=== PATIENT | female | born 1985 | race Caucasian/White ===

== ENCOUNTER 2017-11-29 10:15 | Inpatient (IN) | payer OTHER ==
[2017-11-29 10:54] VITALS: BMI 35.7
[2017-11-29] MEDS ORDERED: CITRIC ACID/SODIUM CITRATE 30 ML UNIT-DOSE CUP PO ONE (11:45)
[2017-11-29] MEDS ORDERED: ELECTROLYTE-148 SOLN 1,000 ML IV ONE (11:45)
[2017-11-29] MEDS ORDERED: TUBERCULIN PPD 5 TU/0.1ML SYRINGE (IN PATIENT USE ONLY) ID ONE (12:00)
--- NOTE | 2017-11-29 12:36 | HP ---
Past Medical History - Admission History Source: Patient, Medical Record Limitations to Obtaining History: No Limitations - Past Medical History Cardiovascular: Yes: Murmur (h/o murmur, stable, no meds). No: AFIB, HTN Pulmonary: No: Asthma Gastrointestinal: No: Constipation, GERD Hepatobiliary: No: Hepatitis B, Hepatitis C Reproductive: No: Ectopic , Endometriosis, Fibroids ...: 2 ...Para: 1 ...Term: 1 ...LMP: 02/28/17 ... Weeks Gestation by Dates: 39.1 ...EDC by Dates: 12/05/17 ...EDC by Sono: 12/01/17 Psych: No: Bipolar, Depression, Panic Musculoskeletal: No: Chronic low back pain - Past Surgical History Past Surgical History: Yes: Hx Myomectomy: No Hx Transabdominal Cerclage: No - Smoking History Smoking history: Never smoked Have you smoked in the past 12 months: No - Alcohol/Substance Use Hx Alcohol Use: No History of Substance Use: reports: None - Social History Usual Living Arrangement: Yes: With Spouse ADL: Independent History of Recent Travel: No Home Medications - Allergies Allergies/Adverse Reactions: Allergies Allergy/AdvReac Type Severity Reaction Status Date / Time codeine Allergy Severe Hives Verified 10/17/17 23:30 Penicillins Allergy Severe Difficulty Verified 10/17/17 23:30 Breathing Sulfa (Sulfonamide Allergy Severe Hives Verified 11/29/17 10:45 Antibiotics) - Home Medications Home Medications: Ambulatory Orders Vitamins (Sjr) - 1 tab PO DAILY 10/02/17 Review of Systems - Review of Systems Constitutional: reports: No Symptoms Eyes: reports: No Symptoms HENT: reports: No Symptoms Neck: reports: No Symptoms Cardiovascular: reports: No Symptoms Respiratory: reports: No Symptoms Gastrointestinal: reports: No Symptoms Genitourinary: reports: No Symptoms Breasts: reports: No Symptoms Reported Musculoskeletal: reports: No Symptoms Integumentary: reports: No Symptoms Neurological: reports: No Symptoms Endocrine: reports: No Symptoms Hematology/Lymphatic: reports: No Symptoms Psychiatric: reports: No Symptoms Physical Exam - Maternity Vital Signs: Vital Signs Temperature 98.6 F 11/29/17 10:15 Pulse Rate 95 H 11/29/17 10:15 Respiratory Rate 18 11/29/17 10:15 Blood Pressure 129/84 11/29/17 10:15 O2 Sat by Pulse Oximetry (%) Constitutional: Yes: Well Nourished Eyes: Yes: WNL Neck: Yes: WNL Lungs: Clear to auscultation - Abdominal Exam/OB Fundal Height: 40 Number of Fetuses: Single Presentation: Vertex Category: I Accelerations: Uniform Decelerations: None - Vaginal Exam/OB Vaginal Bleediing: No Amniotic Membrane Status: Intact - Physical Exam Extremities: Yes: WNL Psychiatric: Yes: Alert, Oriented Hemorrhage Risk Assessment - Risk Factors Medium Risk Factors: Yes: Prior , uterine surgery,or multiple laparotomies Risk Score: 1 Risk Level: Medium Risk Problem List - Problems (1) Uterine scar from previous delivery Code(s): O34.219 - MATERNAL CARE FOR UNSP TYPE SCAR FROM PREVIOUS DEL Assessment/Plan 32 y/o with SIUP at 39 weeks for repeat c sectin AFVSS FHTS cat 1 NPO SCDs Schulz nursery/anesthesia/nursing aware for repeat c section
[2017-11-29] MEDS ORDERED: ELECTROLYTE-148 SOLN 1,000 ML IV SCH (12:45)
[2017-11-29] MEDS ORDERED: morphine SULFATE/Preservative Free 0.5 MG/ML (1cc Syringe) EP ONE (12:51)
[2017-11-29] MEDS ORDERED: ONDANSETRON 4 MG/2 ML VIAL IVPUSH PRN (12:51)
[2017-11-29] MEDS ORDERED: ceFAZolin SODIUM 1 GM VIAL ONE (13:13)
[2017-11-29] MEDS ORDERED: BUPIVACAINE 0.75% IN DEXTROSE/PF 2ML AMPULE NR ONE (13:15)
[2017-11-29] MEDS ORDERED: OXYTOCIN 10 UNITS/ML VIAL ONE ×2 (13:51→13:54)
--- NOTE | 2017-11-29 14:36 | OP ---
Operative Note - Note: Operative Date: 11/29/17 Pre-Operative Diagnosis: Previous delivery, declined TOLAC Operation: repeat low transverse delivery Findings: normal b/l tubes/ovaries Post-Operative Diagnosis: Same as Pre-op Surgeon: Daniela Wiley Community Planner: Daniel Sibley Anesthesiologist/RISK TECH: Gaurav Lui Anesthesia: Spinal Specimens Removed: placenta Estimated Blood Loss (mls): 600 Operative Report Dictated: Yes
[2017-11-29] MEDS ORDERED: METHYLERGONOVINE MALEATE 0.2 MG/1 ML AMP IM PRN (15:10)
[2017-11-29] MEDS ORDERED: oxyCODONE HCL 5 MG TABLET PO PRN ×2 (15:10)
[2017-11-29] MEDS ORDERED: ACETAMINOPHEN 1000 MG/100 ML VIAL (NON FORMULARY) IVPB PRN (15:14)
[2017-11-29] MEDS ORDERED: OXYTOCIN 20 UNITS in 0.9% NS 20 UNIT/1,000 ML INFUS.BAG IV SCH (15:15)
[2017-11-29] MEDS ORDERED: OXYTOCIN 20 UNITS in 0.9% NS 20 UNIT/1,000 ML INFUS.BAG IV ONE (15:28)
[2017-11-29] MEDS ORDERED: IBUPROFEN 800 MG/8 ML IJ IVPB ONE (15:32)
[2017-11-29] MEDS: IBUPROFEN 800 MG/8 ML IJ IVPB PRN (15:35)
--- NOTE | 2017-11-29 21:05 | OP ---
DATE OF OPERATION: 11/29/2017 PREOPERATIVE DIAGNOSIS: Prior delivery, single intrauterine at 39 weeks, declined trial of labor after delivery. POSTOPERATIVE DIAGNOSIS: Prior delivery, single intrauterine at 39 weeks, declined trial of labor after delivery. PROCEDURE: Repeat low transverse delivery. SURGEON: Daniela Wiley DO PODIATRY TEACHER: FIONA Mae ANESTHESIA: Spinal by Delano Lui MD. COMPLICATIONS: None. COUNTS: Sponge, needle, and instrument count correct. DISPOSITION: Stable to PACU. BRIEF HISTORY AND PROCEDURE: Patient is a 32-year-old, G2, P1 female who was admitted to labor and delivery on November 29, 2017, for a scheduled repeat delivery. Consents were signed for the procedure. The patient was taken back to the operating room, given spinal anesthesia, and placed in the dorsal supine position. A Schulz catheter was placed under sterile conditions. She was prepped and draped in the usual sterile fashion, and a hard timeout was performed. A Pfannenstiel skin incision was created in the skin and carried to the underlying layer of rectus fascia with the Bovie. The fascia was incised on either side of the midline, and the incision was extended in a superolateral direction sharply. The fascia was tented upward with Cortes clamps and dissected off the underlying layer of rectus muscle sharply. The musculature was elevated and sharply, and the peritoneum was entered and carefully dissected to allow for adequate room for delivery. A bladder blade was then inserted. A bladder flap was created. Then, an incision in the lower uterine segment was completed in a transverse fashion, and the incision was extended in a superolateral direction bluntly. The infant was delivered from the CHIQUITA position with a loose nuchal cord noted. The remainder of the infant delivered with ease. The cord was clamped twice and cut in between. The infant was taken over to the warmer to be assessed by the neonatology staff. The placenta was then delivered with a 3-vessel cord intact and manually extracted. The uterus was exteriorized from the abdomen and inspected and cleared of all amniotic membrane and debris with a dry lap sponge. The hysterotomy was reapproximated using 1 Vicryl suture in a running locked fashion and in a second layer using 0 Biosyn in a running locked fashion. The bladder peritoneum was sutured back to the incision as well. Excellent hemostasis was achieved. Bilateral tubes and ovaries looked to be normal. The uterus was placed back in the abdomen. Bilateral gutters were inspected and cleared of all blood clot and debris. The peritoneum was reapproximated using 2-0 chromic in a running fashion. The musculature was reapproximated in 2 interrupted sutures using 2-0 chromic and 0 Biosyn. The fascia was reapproximated using 1 Vicryl in a running fashion. The subcutaneous tissue was reapproximated using 1 Vicryl in a running fashion, and the skin was reapproximated in subcuticular fashion using 3-0 Vicryl. Steri-Strips were then applied. The patient was recovering in stable condition in the PACU at the time of this dictation. Sponge, needle, and instrument count was reported correct. DANIELA WILEY DO /[id number]
[2017-11-30 07:23] LABS: BASO % 0.4 % (0-2.0); EOS % 1.5 % (0-4.5); HEMATOCRIT 32.4 % (32.4-45.2); HEMOGLOBIN 11.2 GM/dL (10.7-15.3); LYMPH % 12.1 % (8-40); MCH 31.2 pg (25.7-33.7); MCHC 34.7 g/dl (32.0-36.0); MEAN CELL VOLUME 90.1 fl (80-96); MEAN PLT VOLUME 8.6 fl (7.5-11.1); MONO % 8.6 % (3.8-10.2); NEUT % 77.4 % (42.8-82.8); PLATELET COUNT 214 K/MM3 (134-434); RDW 13.3 % (11.6-15.6); WHITE BLOOD COUNT 12.5 K/mm3 (4.0-10.0)
[2017-11-30] MEDS: IBUPROFEN 800 MG/8 ML IJ IVPB PRN ×2 (08:12)
[2017-11-30] MEDS: SIMETHICONE 80 MG TAB.CHEW (FP) PO PRN ×3 (09:14→18:34)
[2017-11-30] MEDS: PRENATAL VITAMINS W/ FOLIC ACID TABLET (FP) PO SCH (09:14)
--- NOTE | 2017-11-30 09:40 | PN ---
Post Progress Note - Subjective Subjective: Pt seen/evaluated and doing well. Pain controlled, tolerating diet, ambulating , voiding, passing flatus. Tolerating regular diet. No compalints. Type of Delivery: Repeat C/S Vital Signs: Vital Signs Temperature 98.4 F 11/30/17 08:43 Pulse Rate 86 11/30/17 08:43 Respiratory Rate 20 11/30/17 08:43 Blood Pressure 121/67 11/30/17 08:43 O2 Sat by Pulse Oximetry (%) 100 11/29/17 15:20 Uterus: Yes: Fundus Firm Incision: Yes: Sutures intact Abdomen/GI: Yes: Abdomen soft, Passing flatus, Tolerating PO. No: Tender Lochia: Yes: Rubra Lochia, amount: Small Extremities: Yes: Calves non-tender Perineum: Yes: Intact Activity: Ambulating - Labs Labs: CBC WBC 12.5 K/mm3 (4.0-10.0) H 11/30/17 06:20 RBC 3.60 M/mm3 (3.60-5.2) 11/30/17 06:20 Hgb 11.2 GM/dL (10.7-15.3) 11/30/17 06:20 Hct 32.4 % (32.4-45.2) 11/30/17 06:20 MCV 90.1 fl (80-96) 11/30/17 06:20 MCH 31.2 pg (25.7-33.7) 11/30/17 06:20 MCHC 34.7 g/dl (32.0-36.0) 11/30/17 06:20 RDW 13.3 % (11.6-15.6) 11/30/17 06:20 Plt Count 214 K/MM3 (134-434) D 11/30/17 06:20 MPV 8.6 fl (7.5-11.1) 11/30/17 06:20 Absolute Neuts (auto) 9.7 # 11/30/17 06:20 Neutrophils % 77.4 % (42.8-82.8) 11/30/17 06:20 Lymphocytes % 12.1 % (8-40) D 11/30/17 06:20 Monocytes % 8.6 % (3.8-10.2) 11/30/17 06:20 Eosinophils % 1.5 % (0-4.5) D 11/30/17 06:20 Basophils % 0.4 % (0-2.0) D 11/30/17 06:20 Nucleated RBC % 0 % (0-0) 11/30/17 06:20 Problem List - Problems (1) Uterine scar from previous delivery Code(s): O34.219 - MATERNAL CARE FOR UNSP TYPE SCAR FROM PREVIOUS DEL Assessment/Plan 32 y/o POD#2 s/p primary delivery AFVSS Hgb stable regular diet PO pain meds routine care
--- NOTE | 2017-11-30 11:05 | PN ---
Progress Note (short form) - Note Progress Note: Anesthesia/pain Pt seen and examined S:Alert and awake comfortable O: Vital Signs Temperature 98.4 F 11/30/17 08:43 Pulse Rate 86 11/30/17 08:43 Respiratory Rate 20 11/30/17 10:00 Blood Pressure 121/67 11/30/17 08:43 O2 Sat by Pulse Oximetry (%) 100 11/29/17 15:20 CBC, BMP 11/30/17 06:20 A/P: Current Active Problems Uterine scar from previous delivery (Acute) s/p c section Doing well post op Continue current care Zack Yang MD
[2017-11-30] MEDS: IBUPROFEN 600 MG TABLET (FP) PO PRN ×2 (14:41→18:33)
[2017-11-30] MEDS: ACETAMINOPHEN 325 MG TABLET (FP) PO PRN ×2 (14:41→18:33)
[2017-11-30] MEDS ORDERED: BISACODYL 10 MG SUPP.RECT RC PRN (15:10)
[2017-11-30] MEDS ORDERED: DIPHTH,PERTUSS(ACELL),TET 0.5 ML DISP.SYRIN IM ONE (18:00)
[2017-12-01] MEDS: IBUPROFEN 600 MG TABLET (FP) PO PRN ×3 (06:30→18:56)
[2017-12-01] MEDS: SIMETHICONE 80 MG TAB.CHEW (FP) PO PRN ×3 (06:30→18:56)
[2017-12-01] MEDS: ACETAMINOPHEN 325 MG TABLET (FP) PO PRN ×3 (06:31→18:58)
[2017-12-01] MEDS: PRENATAL VITAMINS W/ FOLIC ACID TABLET (FP) PO SCH (09:06)
--- NOTE | 2017-12-01 13:29 | PN ---
Post Progress Note - Subjective Subjective: Pt seen/evaluated no complaints. Pain controlled, tolerating diet, ambulating, voiding, passing flatus, no complaints. Type of Delivery: Repeat C/S Vital Signs: Vital Signs Temperature 97.4 F L 12/01/17 08:00 Pulse Rate 80 12/01/17 08:00 Respiratory Rate 18 12/01/17 08:00 Blood Pressure 113/67 12/01/17 08:00 O2 Sat by Pulse Oximetry (%) 100 11/29/17 15:20 Breast Exam: Yes: Soft Uterus: Yes: Fundus Firm Incision: Yes: Sutures intact Abdomen/GI: Yes: Abdomen soft, Passing flatus, Tolerating PO. No: Abdominal Distention, Tender Lochia: Yes: Rubra Lochia, amount: Small Extremities: Yes: Calves non-tender, Edema (+1 nonpitting edema in LE b/l ) Perineum: Yes: Intact Activity: Ambulating - Labs Labs: CBC WBC 12.5 K/mm3 (4.0-10.0) H 11/30/17 06:20 RBC 3.60 M/mm3 (3.60-5.2) 11/30/17 06:20 Hgb 11.2 GM/dL (10.7-15.3) 11/30/17 06:20 Hct 32.4 % (32.4-45.2) 11/30/17 06:20 MCV 90.1 fl (80-96) 11/30/17 06:20 MCH 31.2 pg (25.7-33.7) 11/30/17 06:20 MCHC 34.7 g/dl (32.0-36.0) 11/30/17 06:20 RDW 13.3 % (11.6-15.6) 11/30/17 06:20 Plt Count 214 K/MM3 (134-434) D 11/30/17 06:20 MPV 8.6 fl (7.5-11.1) 11/30/17 06:20 Absolute Neuts (auto) 9.7 # 11/30/17 06:20 Neutrophils % 77.4 % (42.8-82.8) 11/30/17 06:20 Lymphocytes % 12.1 % (8-40) D 11/30/17 06:20 Monocytes % 8.6 % (3.8-10.2) 11/30/17 06:20 Eosinophils % 1.5 % (0-4.5) D 11/30/17 06:20 Basophils % 0.4 % (0-2.0) D 11/30/17 06:20 Nucleated RBC % 0 % (0-0) 11/30/17 06:20 Problem List - Problems (1) Uterine scar from previous delivery Code(s): O34.219 - MATERNAL CARE FOR UNSP TYPE SCAR FROM PREVIOUS DEL Assessment/Plan 32 y/o POD#3 s/p primary delivery AFVSS Hgb 11.2, pt stable regular diet PO pain meds routine care for discharge home in a.m. POD #3
--- NOTE | 2017-12-01 22:58 | DS ---
Physical Exam-GAS APPLIANCE SERVICER Vital Signs: Vital Signs Temperature 97.4 F L 12/01/17 08:00 Pulse Rate 80 12/01/17 08:00 Respiratory Rate 18 12/01/17 08:00 Blood Pressure 113/67 12/01/17 08:00 O2 Sat by Pulse Oximetry (%) 100 11/29/17 15:20 Constitutional: Yes: Well Nourished, No Distress, Calm Eyes: Yes: WNL HENT: Yes: WNL Neck: Yes: WNL Respiratory: Yes: WNL Gastrointestinal: Yes: Soft. No: Tenderness Musculoskeletal: Yes: WNL Extremities: Yes: WNL Wound/Incision: Yes: Clean/Dry, Well Approximated, Sutures Intact Neurological: Yes: Alert, Oriented Psychiatric: Yes: Alert, Oriented Labs: CBC, BMP 11/30/17 06:20 Delivery - Delivery Section: Repeat, Low Flap Transverse Type of Anesthesia: Spinal Episiotomy/Laceration: None EBL (cc): 600 Delivery, Single - Stages of Labor Date of Delivery: 11/29/17 Time of Delivery: 13:50 Time Placenta Delivered: 13:51 Placenta: Yes: Manual Removal - Condition of Medical Laboratory Assistant/Harness Maker Present: Yes Name: Contreras Hurst Gender: Female Weight: 7 lb 2 oz Position: Right, OA Total Hours ROM (Hrs/Mins): 2mins - 1 Minute Total Score: 9 5 Minutes Total Score: 9 - Feeding Plan Initial Plan: Exclusive throughout hospitalization Discharge Summary Reason For Visit: Current Active Problems Uterine scar from previous delivery (Acute) Procedures: Principal: Repeat delivery. Hospital Course: Pt admitted on 11/29/17 for scheduled repeat c section. Pt underwent uncomplicated procedure on that date. She had an uncomplicated post course and was discharged home on post op day 3. Condition: Good - Instructions Diet, Activity, Other Instructions: Physical activity Resume your normal everyday activity as tolerated no heavy lifting or strenuous exercise until seen by your surgeon. You may walk unlimited amounts and climb stairs. You may resume driving the car when you feel safe and comfortable behind the wheel. No sexual activity as instructed for 6 weeks. Wound care . If there are tapes on the skin leave them in place. They will peel off in the next 7 to 10 days. Do Not Peel them off. You may shower the day after surgery. If there are tapes present on the skin, you may shower over them. Diet There are no dietary restrictions. Eat healthy, high-fiber foods. Drink 6 to 8 glasses of liquid each day. This will assist in keeping your bowels regular. Pain management You may take Tylenol or Ibuprofen (for example, Motrin, Advil etc.) as needed fo pain. Call MD for any of the following: Severe pain not relieved by medication Fever of 101 or higher Excessive bleeding or drainage on dressing Inability to urinate Referrals: Daniela Wiley DO [Staff Physician] - 1 Week (for incision check) Disposition: HOME - Home Medications Comprehensive Discharge Medication List: Ambulatory Orders Vitamins (Sjr) - 1 tab PO DAILY 10/02/17 Ibuprofen [Motrin -] 600 mg PO QID PRN #28 tablet 12/01/17
[2017-12-02] MEDS: SIMETHICONE 80 MG TAB.CHEW (FP) PO PRN (03:26)
[2017-12-02] MEDS: IBUPROFEN 600 MG TABLET (FP) PO PRN (03:26)
[2017-12-02] MEDS: ACETAMINOPHEN 325 MG TABLET (FP) PO PRN (03:28)
[2017-12-02 07:54] LABS: BASO % 0.4 % (0-2.0); EOS % 2.9 % (0-4.5); HEMATOCRIT 33.2 % (32.4-45.2); HEMOGLOBIN 11.5 GM/dL (10.7-15.3); LYMPH % 19.7 % (8-40); MCH 31.4 pg (25.7-33.7); MCHC 34.7 g/dl (32.0-36.0); MEAN CELL VOLUME 90.6 fl (80-96); MEAN PLT VOLUME 8.4 fl (7.5-11.1); MONO % 8.3 % (3.8-10.2); NEUT % 68.7 % (42.8-82.8); PLATELET COUNT 247 K/MM3 (134-434); RBC 3.66 M/mm3 (3.60-5.2); RDW 13.5 % (11.6-15.6); WHITE BLOOD COUNT 8.7 K/mm3 (4.0-10.0)
[2017-12-02 08:26] VITALS: BP 132/78; PULSE 88; TEMP 97.7
[2017-12-02] MEDS: PRENATAL VITAMINS W/ FOLIC ACID TABLET (FP) PO SCH (09:49)
--- NOTE | 2017-12-03 17:35 | PATH ---
Surgical Pathology Report Patient Name: LEATHA SANTOS [facility]. Rec. 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 Specimen(s) Received PLACENTA Clinical History , 39.5 weeks gestation, previous Final Diagnosis PLACENTA, SECTION: 440 g THIRD TRIMESTER PLACENTA WITH TRIVASCULAR UMBILICAL CORD, INTRAPARENCHYMAL HEMORRHAGE (~5-10% OF PLACENTAL SURFACE), AND UNREMARKABLE PLACENTAL MEMBRANES. Electronically Signed Ingrid Price M.D. Gross Description The specimen is received fresh labeled placenta and is a 440 gram, 19.0 x 13.0 x 2.8 cm. placenta with attached membranes and umbilical cord. The attached membranes are ricardo, translucent with focal opacities and insert marginally. The umbilical cord measures 28 cm. in length and averages 1.0 cm. in diameter. The cord inserts eccentrically, 2.5 cm. to the nearest margin. No true knots or strictures are identified. Cut surface of the umbilical cord reveals 3 vessels. The surface is isbell-blue with minimal fibrin deposition and appropriate caliber vessels. The maternal surface is red-brown with focal defects. Sectioning reveals a 1.4 cm greatest dimension hemorrhagic lesion. The remaining placental parenchyma is red-brown and spongy. Trauma Program Manager sections are submitted in 4 cassettes as follows: 1-membrane rolls and umbilical cord; 2-lesion; 3-4-full thickness sections of placenta. /12/02/2017 [facility]12/02/2017
== END 2017-12-02 13:30 | disposition home or self-care (01) | DRG 766 ==
LOC: JLDR 10:15 → J3W 16:30
PROVIDERS: ADMIT Obstetrics & Gynecology; ATTEND Obstetrics & Gynecology
PROC: 10D00Z1 Extraction of Products of Conception, Low, Open Approach (ICD-10-PCS; principal; 2017-11-29)
PROC: 3E0334Z Introduction of Serum, Toxoid and Vaccine into Peripheral Vein, Percutaneous Approach (ICD-10-PCS; 2017-11-30)
DX: O34.211 Maternal care for low transverse scar from previous cesarean delivery (principal); N85.8 Other specified noninflammatory disorders of uterus; O26.893 Other specified pregnancy related conditions, third trimester; Z67.91 Unspecified blood type, Rh negative; Z3A.39 39 weeks gestation of pregnancy; Z37.0 Single live birth
CPT/HCPCS: 36415; 85025; 85461; 86999; 90715

== ENCOUNTER 2018-11-18 15:10 | Inpatient (IN) | payer BC, OTHER ==
--- NOTE | 2018-11-18 15:30 | PDOC ---
Rapid Medical Evaluation Time Seen by Provider: 11/18/18 15:28 Medical Evaluation: Allergies Allergy/AdvReac Type Severity Reaction Status Date / Time codeine Allergy Severe Hives Verified 10/17/17 23:30 Penicillins Allergy Severe Difficulty Verified 10/17/17 23:30 Breathing Sulfa (Sulfonamide Allergy Severe Hives Verified 11/29/17 10:45 Antibiotics) 11/18/18 15:28 HPI: Bleeding PV x3 weeks PE: ambulates, no gross deficits ORDERS: Labs Discharge Disposition - Diagnosis Vaginal bleeding - Referrals - Patient Instructions - Post Discharge Activity
[2018-11-18 16:38] LABS: BASO % 0.6 % (0-2.0); EOS % 3.2 % (0-4.5); HEMATOCRIT 41.9 % (32.4-45.2); HEMOGLOBIN 14.1 GM/dL (10.7-15.3); LYMPH % 34.9 % (8-40); MCH 29.5 pg (25.7-33.7); MCHC 33.7 g/dl (32.0-36.0); MEAN CELL VOLUME 87.6 fl (80-96); MEAN PLT VOLUME 8.5 fl (7.5-11.1); MONO % 8.8 % (3.8-10.2); NEUT % 52.5 % (42.8-82.8); PLATELET COUNT 339 K/MM3 (134-434); RBC 4.79 M/mm3 (3.60-5.2); WHITE BLOOD COUNT 7.2 K/mm3 (4.0-10.0)
--- NOTE | 2018-11-18 16:49 | PDOC ---
History of Present Illness - General Chief Complaint: Vaginal Bleeding Stated Complaint: VAGINAL BLEEDING Time Seen by Provider: 11/18/18 15:28 History Source: Patient Exam Limitations: No Limitations - History of Present Illness Initial Comments: 11/18/18 16:43 33 yo female no sig medical hx, presents to the ED for vaginal clots[facility] Last month started OCPs October 12 US shows blood in the Uterus with jon blood that subsided however returned November 02 Clots, strings intermittently , 2-4 pads per day with cramping worse than usual no systemic symptoms Called [facility], told to go to the ER Denies dizziness, fatigue, weakness Past History - Past Medical History Allergies/Adverse Reactions: Allergies Allergy/AdvReac Type Severity Reaction Status Date / Time codeine Allergy Severe Hives Verified 11/18/18 15:29 Penicillins Allergy Severe Difficulty Verified 11/18/18 15:29 Breathing Sulfa (Sulfonamide Allergy Severe Hives Verified 11/18/18 15:29 Antibiotics) Home Medications: Ambulatory Orders Doxycycline Hyclate [Vibratab -] 100 mg PO BID #6 tablet 11/18/18 Ibuprofen [Motrin -] 600 mg PO TID #21 tablet 11/18/18 Asthma: No Cancer: No Cardiac Disorders: Yes (patient has heart murmur - no meds) COPD: No Diabetes: No HTN: No Seizures: No Thyroid Disease: No - Suicide/Smoking/Psychosocial Hx Smoking History: Unknown if ever smoked Have you smoked in the past 12 months: No Hx Alcohol Use: No Drug/Substance Use Hx: No Hx Substance Use Treatment: No Review of Systems - Review of Systems Constitutional: No: Chills, Fever Respiratory: No: Shortness of Breath Cardiac (ROS): No: Chest Pain, Edema ABD/GI: Yes: Abdominal cramping. No: Constipated, Diarrhea, Nausea, Vomiting : Yes: Other (vaginal bleeding). No: Burning, Dysuria, Hematuria, Incontinence Musculoskeletal: No: Back Pain Integumentary: No: Change in Color, Pallor Neurological: No: Headache, Numbness, Paresthesia, Weakness, Unsteady Gait, Ataxia, Dizziness *Physical Exam - Vital Signs Last Vital Signs Temp Pulse Resp BP Pulse Ox 98.6 F 85 18 130/80 100 11/18/18 15:31 11/18/18 15:31 11/18/18 15:31 11/18/18 15:31 11/18/18 15:31 - Physical Exam General Appearance: Yes: Nourished, Appropriately Dressed. No: Apparent Distress HEENT: positive: EOMI Neck: positive: Supple. negative: Carotid bruit Respiratory/Chest: positive: Lungs Clear, Normal Breath Sounds. negative: Rapid RR, Crackles, Rales, Rhonchi, Wheezing Cardiovascular: positive: Regular Rhythm, Regular Rate, S1, S2. negative: Edema , JVD, Murmur Vascular Pulses: Dorsalis-Pedis (R): 4+, Doralis-Pedis (L): 4+ Female Pelvic Exam: positive: normal external exam, discharge (bloody). negative: CMT, adnexal tenderness Gastrointestinal/Abdominal: positive: Flat, Soft. negative: Pulsatile Mass, Protuberent, Distended, Guarding, Rebound, Tenderness Musculoskeletal: negative: CVA Tenderness Extremity: positive: Normal Capillary Refill, Normal Inspection Integumentary: positive: Normal Color, Dry, Warm Neurologic: positive: Fully Oriented, Alert, Normal Mood/Affect, Normal Response , Motor Strength 09/18 ED Treatment Course - LABORATORY CBC & Chemistry Diagram: 11/18/18 16:20 Medical Decision Making - Medical Decision Making 11/18/18 19:32 33 yo female presents to ED with vaginal bleeding 2 - 4 pads per day intermittently since September 29 after medication . Pt states she had greater than 5 pads of bleeding with clots today with abdominal cramping. Preg test positive Transvag shows retained products of conception Called Dr. Wiley, Dr. Calix ip technology transactions attorney. Pending call back Case discussed with Dr. Calix , recommends 0.2mg of methergine and will see the pt in the ED before 9 pm Pt Rh negative, will give Rhogam. Dr. Calix assess pt, states she will being going for a D& C tonight and has taken care of the admission process pt left the dept to go to surgery *DC/Admit/Observation/Transfer Diagnosis at time of Disposition: Vaginal bleeding - Discharge Dispostion Condition at time of disposition: Stable Decision to Admit order: Yes - Referrals - Patient Instructions - Post Discharge Activity
[2018-11-18 16:53] LABS: INR 1.03 (0.83-1.09); PROTHROMBIN TIME (PATIENT) 12.2 SEC (9.7-13.0)
[2018-11-18] MEDS ORDERED: METHYLERGONOVINE MALEATE 0.2 MG TABLET (FP) PO ONE (20:30)
[2018-11-18] MEDS ORDERED: RHO(D) IMMUNE GLOBULIN 1,500 UNIT DISP.SYRIN IM ONE (20:31)
--- NOTE | 2018-11-18 20:45 | PDOC ---
Documentation entered by Nicole Forman SCRIBE, acting as scribe for Steven Reed MD. Steven Reed MD: This documentation has been prepared by the Dasia carmona Adrianna, SCRIBE, under my direction and personally reviewed by me in its entirety. I confirm that the documentation accurately reflects all work, treatment, procedures, and medical decision making performed by me. Attending Attestation - Resident Resident Name: ChagokathiaHakeem - ED Attending Attestation I have performed the following: I have examined & evaluated the patient, The case was reviewed & discussed with the resident, I agree w/resident's findings & plan, Exceptions are as noted - HPI HPI: The patient is a 33 year old female, with no significant PMH, who presents to the ED for evaluation of vaginal bleeding for 2.5 weeks. Patient notes she had a medical September 29 at [facility]. Pt began taking OCPs again in October for control. She then reports she got her period mid October but has not stopped bleeding since. Patient endorses passing stringy-clots intermittently, soaking through 2-4 pads per day. She reports associated cramping, which has been worse than her usual cramps from her period. She was told she would keep bleeding by PP, but was not given a timeline for how long this would take to subside. Patient spoke with Dr. Wiley about her persistent bleeding, who advised she come to the ED for evaluation. Denies CP, SOB, headache, focal weakness/numbness, dizziness, abd pain, N/V/D, fevers, chills or urinary sxs. 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 Sitting in the stretcher, talking on the phone. HEAD: No signs of trauma EYES: PERRLA, EOMI, sclera anicteric, conjunctiva clear ENT: Oropharynx clear without exudates. Moist mucosa NECK: Normal ROM, supple, no lymphadenopathy, JVD, or masses LUNGS: Breath sounds equal, clear to auscultation bilaterally. No wheezes, and no crackles HEART: Regular rate and rhythm, normal S1 and S2, no murmurs, rubs or gallops ABDOMEN: Soft, nontender, normoactive bowel sounds. No guarding, no rebound. No masses : ext genitalia wnl. +bleeding through os. Os is closed. No midline or adnexal ttp. No CMT EXTREMITIES: Normal range of motion, no edema. No clubbing or cyanosis. No cords , erythema, or tenderness NEUROLOGICAL: Normal speech, cranial nerves intact, equal strength and sensation b/l SKIN: Warm, Dry, normal turgor, no rashes or lesions noted. - Medical Decision Making 11/18/18 20:44 33yo F presents to the ED with recurrent vaginal bleeding after medical in mid September TVUS concerning for retained POCs +bleeding on exam Dr. Calix (covering for Dr. Wiley) is on her way in for evaluation of patient In the meantime recommends methergine which has been ordered 11/18/18 21:19 Dr. Calix evaluating pt, will take to OR Wants us to admit under her for further mgmt Case discussed in detail with admitting physician including history, physical exam and ancillary studies. Admitting physician has assumed care for the patient, will follow all pending diagnostics and will complete the evaluation and treatment. ED Treatment Course - LABORATORY CBC & Chemistry Diagram: 11/18/18 16:20 - ADDITIONAL ORDERS Additional order review: Laboratory Results 11/18/18 11/18/18 16:20 16:20 PT with INR 12.20 INR 1.03 Serum , Qual Positive 11/18/18 16:20 RBC 4.79 MCV 87.6 MCHC 33.7 RDW 13.0 MPV 8.5 Neutrophils % 52.5 D Lymphocytes % 34.9 D Monocytes % 8.8 Eosinophils % 3.2 Basophils % 0.6 - RADIOLOGY Radiology Studies Ordered: EXAM#: TYPE/EXAM: RESULT: [id number] US/TRANSVAGINAL ULTRASOUND US Transvaginal ultrasound Clinical information: evaluate for retained products of conception; recent 09/29/2018 Impression: Possible retained products of conception as noted above. Reported By: Abhijit Peñaloza MD 11/18/18 19:12 - Consult/PCP Time Called: 19:24 (paged Dr. Wiley's call service, pending call back) - Additional Consults Time Called: 20:16 (spoke with Dr. Calix)
[2018-11-18] MEDS ORDERED: METHYLERGONOVINE MALEATE 0.2 MG/1 ML AMP IM PRN (21:14)
--- NOTE | 2018-11-18 21:14 | CON.OBG ---
Consult Consult Specialty:: Obstetrics Referred by:: Fifi - History of Present Illness Chief Complaint: Retained products of conception History of Present Illness: 33 yo SP Section x2 wih POC noted by sug due to medical done in September 2018. pt has been bleeding since taking pil Hx of heart murmur - History Source History Provided By: Patient Limitations to Obtaining History: No Limitations - Past Medical History Cardio/Vascular: Yes: Murmur (h/o murmur, stable, no meds). No: AFIB, HTN ...LMP: 10/30/18 ...: Yes - Past Surgical History Past Surgical History: Yes: - Alcohol/Substance Use Hx Alcohol Use: No History of Substance Use: reports: None - Smoking History Smoking history: Unknown if ever smoked Have you smoked in the past 12 months: No - Social History Usual Living Arrangement: With Spouse ADL: Independent History of Recent Travel: No Home Medications - Allergies Allergies/Adverse Reactions: Allergies Allergy/AdvReac Type Severity Reaction Status Date / Time codeine Allergy Severe Hives Verified 11/18/18 15:29 Penicillins Allergy Severe Difficulty Verified 11/18/18 15:29 Breathing Sulfa (Sulfonamide Allergy Severe Hives Verified 11/18/18 15:29 Antibiotics) - Home Medications Home Medications: Ambulatory Orders NK [No Known Home Medication] 11/18/18 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 Signs: Vital Signs Temperature 98.2 F 11/18/18 16:55 Pulse Rate 92 H 11/18/18 16:55 Respiratory Rate 18 11/18/18 16:55 Blood Pressure 128/86 11/18/18 16:55 O2 Sat by Pulse Oximetry (%) 97 11/18/18 16:55 Constitutional: Yes: Well Nourished, No Distress Respiratory: Yes: WNL Gastrointestinal: Yes: WNL, Soft External Genitalia: Yes: Normal Vaginal Exam: Yes: Bleeding Cervix: Yes: Bleeding, Other (POC within os) Uterus: Yes: Normal Breast(s): Yes: WNL Musculoskeletal: Yes: WNL Extremities: Yes: WNL Edema: No Labs: CBC, BMP 11/18/18 16:20 Problem List - Problems (1) Incomplete Code(s): O03.4 - INCOMPLETE SPONTANEOUS WITHOUT COMPLICATION (2) Vaginal bleeding Code(s): N93.9 - ABNORMAL UTERINE AND VAGINAL BLEEDING, UNSPECIFIED Assessment/Plan INcomplete by usg Plan Suction DC
[2018-11-18 21:46] LABS: PH,URINE 6.5 (5.0-8.0); URINE APPEARANCE CLEAR; URINE BILIRUBIN NEGATIVE (NEGATIVE); URINE COLOR YELLOW; URINE GLUCOSE (UA) NEGATIVE (NEGATIVE); URINE KETONE NEGATIVE (NEGATIVE); URINE LEUK ESTERASE NEGATIVE (NEGATIVE); URINE NITRITE NEGATIVE (NEGATIVE); URINE PROTEIN NEGATIVE (NEGATIVE); URINE UROBILINOGEN 0.2 mg/dL (0.2-1.0)
[2018-11-18 21:47] LABS: HCG,QUALITATIVE URINE Negative
[2018-11-18] MEDS ORDERED: LIDOCAINE HCL/PF 2% SDV 5ML VIAL ONE (22:38)
[2018-11-18] MEDS ORDERED: MIDAZOLAM HCL 2 MG/2 ML SINGLE DOSE VIAL ONE ×2 (22:39)
[2018-11-18] MEDS ORDERED: PROPOFOL 20 ML ONE (22:39)
[2018-11-18] MEDS ORDERED: ceFAZolin SODIUM 1 GM VIAL IVPB ONE (22:40)
[2018-11-18] MEDS ORDERED: SUCCINYLCHOLINE CHLORIDE 200 MG/10 ML SYRINGE ONE (22:43)
[2018-11-18] MEDS ORDERED: PROMETHAZINE HCL 25 MG/1 ML VIAL IVPUSH PRN (23:03)
[2018-11-18] MEDS ORDERED: ONDANSETRON 4 MG/2 ML VIAL IVPUSH PRN (23:03)
[2018-11-18] MEDS ORDERED: oxyCODONE HCL 5 MG TABLET PO PRN (23:03)
[2018-11-18] MEDS ORDERED: ACETAMINOPHEN 325 MG TABLET (FP) PO PRN (23:22)
[2018-11-18] MEDS ORDERED: IBUPROFEN 400 MG TABLET (FP) PO PRN (23:22)
--- NOTE | 2018-11-18 23:31 | OP ---
Operative Note - Note: Operative Date: 11/18/18 Pre-Operative Diagnosis: Incomplete Operation: Suction DC Post-Operative Diagnosis: Same as Pre-op Surgeon: Melinda Calix Anesthesia: General Estimated Blood Loss (mls): 35 Operative Report Dictated: Yes
[2018-11-18 23:34] LABS: URINE BACTERIA 13 /hpf (NEGATIVE); URINE RBC 1.3 /hpf (0-4)
[2018-11-19 00:41] VITALS: BMI 30.6
--- NOTE | 2018-11-19 06:39 | DS ---
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: Vital Signs Temperature 98.6 F 11/19/18 05:00 Pulse Rate 86 11/19/18 05:00 Respiratory Rate 18 11/19/18 05:00 Blood Pressure 116/72 11/19/18 05:00 O2 Sat by Pulse Oximetry (%) 98 11/18/18 23:42 Constitutional: Yes: Well Nourished, No Distress Gastrointestinal: Yes: WNL, Soft Breast(s): Yes: WNL Musculoskeletal: Yes: WNL, Muscle Weakness Edema: No Labs: CBC, BMP 11/18/18 16:20 Discharge Summary Reason For Visit: INCOMPLETE Current Active Problems Incomplete (Acute) Vaginal bleeding (Acute) Procedures: Principal: Suction DC Hospital Course: Stable Condition: Stable - Instructions Diet, Activity, Other Instructions: Dr. Melinda Calix Scrub Tech discharge instructions Physical activity Resume your normal everyday activity as tolerated no heavy lifting or exercise until seen by your surgeon. You may walk unlimited abhinav of and climb stairs. You may resume driving the car when you feel safe and comfortable behind the wheel. No sexual activity as instructed by Dr. Calix. Wound care If you have a bandage, leave it on, and keep dry for 48-72 hours. After that time discard the outer bandage. If they are tapes on the skin under the out of bandage leave them in place. They will peel off in the next 7 to 10 days. Do Not Peel them off. You may shower the day after surgery. If there are tapes present on the skin, you may shower over them. Diet There are no dietary restrictions. Eat healthy, high-fiber foods. Drink 6 to 8 glasses of liquid each day. This will assist in keeping your bowels are regular. Pain management You may take Tylenol or acetaminophen or Ibuprofen (for example, Motrin, Advil etc.) from my pain prescription medication is ordered should be taken as prescribed for moderate to severe pain. Call Dr. Calix for any of the following: Severe pain not relieved by medication Fever of 101 or higher Excessive bleeding or drainage on dressing Inability to urinate Call the office at [phone] for an appointment in seven days. Disposition: HOME - Home Medications Comprehensive Discharge Medication List: Ambulatory Orders Doxycycline Hyclate [Vibratab -] 100 mg PO BID #6 tablet 11/18/18 Ibuprofen [Motrin -] 600 mg PO TID #21 tablet 11/18/18
--- NOTE | 2018-11-19 07:24 | OP ---
DATE OF OPERATION: 11/18/2018 PREOPERATIVE DIAGNOSIS: Incomplete . OPERATION: Suction dilatation and curettage. POSTOPERATIVE DIAGNOSIS: Incomplete . SURGEON: Melinda Calix MD ANESTHESIA: General. DESCRIPTION OF PROCEDURE: The patient was taken to the operating room, placed in the dorsal lithotomy position, prepped and draped in the usual sterile fashion. A time-out was performed in accordance with hospital regulation. A speculum was placed in the vagina. The anterior lip of the cervix was grasped with a single-tooth tenaculum. A number 8 suction curette was inserted into the endometrial cavity and suction D&C was then performed. All the contents were submitted to Pathology. This was followed by sharp curettage and then suction D&C. All instruments were then removed. The patient tolerated the procedure well. ESTIMATED BLOOD LOSS: 35 mL. MELINDA CALIX M.D. CHAUNCEY/[id number]
[2018-11-19 10:41] VITALS: BP 137/88; PULSE 88; TEMP 98.2
--- NOTE | 2018-11-19 11:25 | PN ---
Progress Note, Physician Chief Complaint: POD1 s/p DandC - Current Medication List Current Medications: Active Medications Acetaminophen (Tylenol -) 650 mg PO Q4H PRN PRN Reason: FEVER Fentanyl (Sublimaze Injection -) 50 mcg IVPUSH [id number] PRN PRN Reason: PAIN-PACU ORDER X 4 DOSES ONLY Ibuprofen (Motrin -) 400 mg PO Q4H PRN PRN Reason: PAIN LEVEL 1-5 Methylergonovine Maleate (Methergine Injection -) 0.2 mg IM Q4H PRN PRN Reason: EXCESSIVE BLEEDING Ondansetron HCl (Zofran Injection) 4 mg IVPUSH Q6H PRN PRN Reason: NAUSEA AND/OR VOMITING Promethazine HCl (Phenergan Injection -) 12.5 mg IVPUSH Q6H PRN PRN Reason: NAUSEA-FOR RESCUE AFTER 15 MIN - Objective Vital Signs: Vital Signs Temperature 98.2 F 11/19/18 09:00 Pulse Rate 88 11/19/18 09:00 Respiratory Rate 18 11/19/18 09:00 Blood Pressure 137/88 11/19/18 09:00 O2 Sat by Pulse Oximetry (%) 98 11/19/18 09:00 Labs: CBC, BMP 11/18/18 16:20 INR, PTT INR 1.03 (0.83-1.09) 11/18/18 16:20 Assessment/Plan Doing well s/p GA for DandC. VSS, pt has no complaints of pain,N/V; no anesthetic issues/complications noted. Pt for d/c home today.
--- NOTE | 2018-11-22 16:36 | PATH ---
Surgical Pathology Report Patient Name: LEATHA SANTOS Med. Rec. #: [id number] /Age/Gender: 1985 (Age: 33) / F Account: [id number] Location: [address] [place] [id number] Taken: 11/18/2018 Received: 11/21/2018 Reported: 11/22/2018 Physicians: Melinda Calix M.D. PHYSICIAN EMERGENCY DEPT Specimen(s) Received UTERINE CONTENTS Clinical History Incomplete Final Diagnosis CONTENTS OF UTERUS, REMOVAL: CHORIONIC VILLI AND DECIDUAL TISSUE WITH DEGENERATIVE CHANGE AND FOCAL ACUTE INFLAMMATION. SEPARATE FRAGMENTS OF MIXED WEAKLY PROLIFERATIVE AND HYPERSECRETORY TYPE ENDOMETRIAL TISSUE PRESENT. Electronically Signed Carri Mack M.D. Gross Description Received in formalin labeled "contents of uterus," is a 6.0 x 4.0 x 0.9 cm aggregate of ricardo-brown soft tissue fragments. No definite villous tissue or somatic tissue is identified. A sales solutions representative portion is submitted in 3 cassettes. /11/21/2018 saudi/11/21/2018
== END 2018-11-19 11:55 | disposition home or self-care (01) | DRG 770 ==
LOC: JER 15:10 → SUPCPDRO 15:10 → J6S 21:19
PROVIDERS: ADMIT Obstetrics & Gynecology; ATTEND Obstetrics & Gynecology
PROC: 3E0334Z Introduction of Serum, Toxoid and Vaccine into Peripheral Vein, Percutaneous Approach (ICD-10-PCS; 2018-11-18)
PROC: 10D17ZZ Extraction of Products of Conception, Retained, Via Natural or Artificial Opening (ICD-10-PCS; principal; 2018-11-18 22:30)
DX: O03.1 Delayed or excessive hemorrhage following incomplete spontaneous abortion (principal); Z29.13 Encounter for prophylactic Rho(D) immune globulin
CPT/HCPCS: 36415; 76830-TC; 81003; 84703; 85025; 85610; 86850; 86900; 86901; 86999; 87086; 88305-TC; 94760; 99283-25; J1561

== ENCOUNTER 2022-12-07 05:40 | Inpatient (IN) | payer BC, OTHER ==
[2022-12-07] MEDS ORDERED: ELECTROLYTE-148 SOLN 500 ML IV ONE (06:15)
[2022-12-07] MEDS ORDERED: CITRIC ACID/SODIUM CITRATE 30 ML UNIT-DOSE CUP PO ONE (06:15)
[2022-12-07 06:26] VITALS: BMI 37.2
[2022-12-07] MEDS ORDERED: ELECTROLYTE-148 SOLN 1,000 ML IV SCH ×2 (06:45→11:00)
[2022-12-07] MEDS ORDERED: morphine SULFATE/PF 1 MG/2 ML (2cc Syringe - QUVA) ONE (08:03)
[2022-12-07] MEDS ORDERED: FENTANYL CITRATE/PF 50 MCG/ML VIAL ONE (08:03)
[2022-12-07] MEDS ORDERED: PROPOFOL 20 ML ONE (08:14)
[2022-12-07] MEDS ORDERED: LIGASURE IMPACT TP ONE (08:21)
[2022-12-07 08:29] LABS: HIV INTERPRETATION NEGATIVE (NEGATIVE)
[2022-12-07] MEDS ORDERED: CLINDAMYCIN 900 MG PREMIX IVPB 900 MG/50 ML BAG IVPB ONE (08:34)
[2022-12-07 09:38] LABS: CORD BASE EXCESS -1.1 mmol/L (0-2); CORD HCO3 25.4 mmHg (20-29); CORD PCO2 49.5 mmHg (30-78); CORD pH 7.328 (7.14-7.44)
[2022-12-07 09:41] LABS: CORD BASE EXCESS -0.7 mmol/L (0-2); CORD HCO3 24.6 mmHg (20-29); CORD PCO2 42.7 mmHg (30-78); CORD pH 7.378 (7.14-7.44)
[2022-12-07] MEDS ORDERED: MINERAL OIL/PETROLATUM,WHITE 3.5 GM TUBE ONE (09:44)
[2022-12-07] MEDS ORDERED: OXYTOCIN 10 UNITS/ML VIAL ONE (09:44)
[2022-12-07] MEDS ORDERED: ACETAMINOPHEN INJECTION 100 ML IVPB ONE (10:57)
[2022-12-07] MEDS ORDERED: OXYTOCIN 20 UNITS in 0.9% NS 20 UNIT/1,000 ML INFUS.BAG IV ONE (10:58)
[2022-12-07] MEDS ORDERED: IBUPROFEN 800 MG/8 ML IJ IVPB PRN (11:09)
[2022-12-07] MEDS ORDERED: METHYLERGONOVINE MALEATE 0.2 MG/1 ML AMP IM PRN (11:09)
[2022-12-07] MEDS ORDERED: WITCH HAZEL 50% (TUCKS) 40 PAD/JAR PAD TP PRN (11:09)
[2022-12-07] MEDS ORDERED: ACETAMINOPHEN 1000 MG/100 ML BAG IVPB PRN (11:12)
[2022-12-07] MEDS: OXYTOCIN 20 UNITS in 0.9% NS 20 UNIT/1,000 ML INFUS.BAG IV SCH ×2 (11:40→20:30)
[2022-12-07] MEDS ORDERED: ePHEDrine SULFATE 50 MG/1 ML AMPULE ONE (15:27)
[2022-12-07] MEDS: IBUPROFEN 600 MG TABLET (FP) PO PRN (17:58)
[2022-12-07] MEDS: SIMETHICONE 80 MG TAB.CHEW (FP) PO PRN (17:58)
[2022-12-07 23:09] VITALS: RESP 18
[2022-12-07] MEDS ORDERED: oxyCODONE HCL 5 MG TABLET PO PRN ×2 (23:09)
[2022-12-08] MEDS: SIMETHICONE 80 MG TAB.CHEW (FP) PO PRN ×3 (02:18→21:45)
[2022-12-08 07:01] LABS: BASO % 0.3 % (0-2.0); HEMATOCRIT 30.6 % (32.4-45.2); HEMOGLOBIN 10.5 GM/dL (10.7-15.3); LYMPH % 12.3 % (8-40); MCH 31.2 pg (25.7-33.7); MCHC 34.3 g/dl (32.0-36.0); MEAN PLT VOLUME 9.1 fl (7.5-11.1); MONO % 6.8 % (3.8-10.2); NEUT % 78.6 % (42.8-82.8); PLATELET COUNT 238 10^3/uL (134-434); RBC 3.36 M/mm3 (3.60-5.2); RDW 12.6 % (11.6-15.6); WHITE BLOOD COUNT 13.4 K/mm3 (4.0-10.0)
[2022-12-08] MEDS: ACETAMINOPHEN 325 MG TABLET (FP) PO PRN ×2 (09:39→13:16)
[2022-12-08] MEDS: PRENATAL VITAMINS W/ FOLIC ACID TABLET (FP) PO SCH (09:39)
[2022-12-08] MEDS ORDERED: BISACODYL 10 MG SUPP.RECT RC PRN (11:09)
[2022-12-08] MEDS: IBUPROFEN 600 MG TABLET (FP) PO PRN ×2 (15:43→21:46)
[2022-12-09] MEDS: PRENATAL VITAMINS W/ FOLIC ACID TABLET (FP) PO SCH (09:18)
[2022-12-09] MEDS: IBUPROFEN 600 MG TABLET (FP) PO PRN ×2 (12:54→19:43)
[2022-12-09] MEDS: SIMETHICONE 80 MG TAB.CHEW (FP) PO PRN (19:42)
[2022-12-09 22:04] VITALS: TEMP 97.7
[2022-12-10 07:38] LABS: BASO % 0.3 % (0-2.0); EOS % 4.7 % (0-4.5); HEMATOCRIT 28.2 % (32.4-45.2); HEMOGLOBIN 9.5 GM/dL (10.7-15.3); LYMPH % 16.8 % (8-40); MCHC 33.7 g/dl (32.0-36.0); MEAN CELL VOLUME 91.8 fl (80-96); MEAN PLT VOLUME 8.8 fl (7.5-11.1); MONO % 7.6 % (3.8-10.2); NEUT % 70.6 % (42.8-82.8); PLATELET COUNT 234 10^3/uL (134-434); RBC 3.07 M/mm3 (3.60-5.2); WHITE BLOOD COUNT 9.6 K/mm3 (4.0-10.0)
[2022-12-10] MEDS: PRENATAL VITAMINS W/ FOLIC ACID TABLET (FP) PO SCH (09:34)
[2022-12-10] MEDS: ACETAMINOPHEN 325 MG TABLET (FP) PO PRN (09:35)
[2022-12-10 10:00] VITALS: BP 121/74; PULSE 89
== END 2022-12-10 15:30 | disposition home or self-care (01) | DRG 784 ==
LOC: JLDR 05:40 → J3W 12:05
PROVIDERS: ADMIT Obstetrics & Gynecology; ATTEND Obstetrics & Gynecology
PROC: 10D00Z1 Extraction of Products of Conception, Low, Open Approach (ICD-10-PCS; principal; 2022-12-07)
PROC: 0UT70ZZ Resection of Bilateral Fallopian Tubes, Open Approach (ICD-10-PCS; 2022-12-07)
DX: O34.219 Maternal care for unspecified type scar from previous cesarean delivery (principal); O44.03 Complete placenta previa NOS or without hemorrhage, third trimester; O99.214 Obesity complicating childbirth; Z3A.37 37 weeks gestation of pregnancy; Z37.0 Single live birth; Z30.2 Encounter for sterilization
CPT/HCPCS: 36415; 36600; 82803; 85025; 85461; 86850; 86870; 86900; 86901; 86902; 86922; 87389; 88302-TC; 88307-TC; J2790